=== PATIENT | female | born 1970 | race Hispanic/Latino ===

== ENCOUNTER 2018-03-15 12:50 | Emergency (ER) | payer OTHER ==
[~2018-03-15 12:50] MED LIST: LEVO500T2 PO; METR500T PO
[2018-03-15] MEDS ORDERED: DIAZEPAM 2 MG TAB ONE (14:00)
[2018-03-15] MEDS ORDERED: KETOROLAC TROMETHAMINE 30MG/ML ONE (14:00)
== END 2018-03-15 15:43 | disposition home or self-care (01) ==
LOC: EDH 12:50
DX: G89.29 Other chronic pain (principal); M54.5 Low back pain
CPT/HCPCS: 72131; 96372; 99284; J1885